=== PATIENT | female | born 1975 | race Caucasian/White ===

== ENCOUNTER 2017-05-05 09:13 | Inpatient (IN) ==
[~2017-05-05 09:13] MED LIST: Bacitracin 50,000 UNIT, Polymyxin B Sulfate 500,000 UNIT, Sodium Chloride IRRigation 1,... IR ONE
[2017-05-05] MEDS ORDERED: CeFAZolin Syr 2,000MG/20 ML 2,000 MG/20 ML SYRINGE IVPB ONE (09:42)
[2017-05-05] MEDS ORDERED: Ringers Solution, Lactated 1,000 ML IVC SCH ×2 (09:45→16:53)
--- NOTE | 2017-05-05 10:09 | Anesthesia Evaluation PreOp ---
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 Other Medical History: GERD Anesthesia History: Past Anesthesia (GB, APPY, SARAH, Spine and bladder stimulator ), Problems (PONV) : No (SARAH) Alcohol Use: none Drug use: none Medications and Allergies Ferrous Sulfate 325 mg PO BID 12/19/14 [History] Potassium Chloride 40 meq PO DAILY 12/19/14 [History] Cyclobenzaprine [Flexeril] 10 mg PO TID PRN 12/31/15 [History] Furosemide [Lasix] 20 mg PO DAILY 12/31/15 [History] Meclizine HCl [Verticalm] 25 mg PO BID PRN 12/31/15 [History] Gabapentin [Neurontin] 800 mg PO TID 07/13/16 [History] Nabumetone [Relafen] 500 mg PO BID 07/13/16 [History] 3 Allergy/AdvReac Type Severity Reaction Status Date / Time No Known Allergies Allergy Verified 05/05/17 10:15 - Meds/Allergy Pre-op Review Medications Reviewed: Yes Allergies Reviewed: Yes Beta Blockers on Current Med List: No Anesthesia Results - Labs Laboratory Tests 05/04/17 05/04/17 05/04/17 09:12 09:12 09:12 WBC 5.6 Hgb 14.3 Hct 43.8 Plt Count 259 INR 1.0 Sodium 139 Potassium 4.2 Chloride 106 Carbon Dioxide 28 BUN 10 Creatinine 1.00 Stress 01/25 EF-72% No Ischemia - Imaging EKG: report reviewed (SR) Anesthesia Exam O2 Sat Height 1.65 m Height 1.65 m Height 1.65 m Weight 98.43 kg Weight 98.43 kg Weight 98.43 kg O2 Sat by Pulse Oximetry 97 O2 Sat by Pulse Oximetry 97 Vital Signs Temp Pulse Resp BP Pulse Ox 98.6 F 65 18 124/71 97 05/05/17 09:40 05/05/17 09:40 05/05/17 09:40 05/05/17 09:40 05/05/17 09:40 NPO (# of Hours): > 8 hrs Pain Scale: 0 Pain Scale Used: Numeric (1 - 10) - HEENT Pupil (Motor): Pupils equal, EOMI Mallampati: II Teeth: Normal Oral Opening: Greater than 3 - 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
[2017-05-05] MEDS ORDERED: Scopolamine Patch 1.5 MG PATCH.TD72 TD ONE (10:21)
[2017-05-05] MEDS ORDERED: *HR* FentaNYL (PF) 100 MCG/2 ML VIAL ONE (11:29)
[2017-05-05] MEDS ORDERED: Lidocaine -MPF 2% 2 ML VIAL ONE (11:30)
--- NOTE | 2017-05-05 12:09 | History & Physical Report ---
Date of Encounter: 05/05/17 Time of Encounter: 12:08 24 Hour HP Update - Instructions Instructions: If the History and Physical is less than 30 days old and was completed prior to A.M. admission and or procedure and has NOT been updated on calendar day of procedure please complete this update prior to performing procedure. - Update Patient reports changes in Medical Condition: No Changes in examination, assessment, or condition: No Changes in Medication: No Preop tests/diagnostics Reviewed: Yes Pre-Op MRSA Screen: Negative Surgery Remains Indicated: Yes Consent for Planned Operative Procedure(s) Verified: Yes - Pre-Operative Checklist Preoperative Checklist Indicated: No Prophylactic Antibiotic Ordered: Yes Home Medications Include Beta Geronimo: No Beta Geronimo Taken Today (Day of Surgery): No Beta Geronimo Taken Yesterday (Day Prior to Surgery): No Is VTE Prophylaxis Indicated?: Yes
[2017-05-05] MEDS ORDERED: *HR* Remifentanil 2 MG VIAL IVP ONE (12:28)
[2017-05-05] MEDS ORDERED: *HR* Midazolam HCl 2 MG/2 ML VIAL ONE (12:32)
[2017-05-05] MEDS ORDERED: Dexamethasone 4 MG/ML VIAL ONE ×2 (13:15→14:26)
[2017-05-05] MEDS ORDERED: Ondansetron 4 MG/2 ML VIAL ONE ×2 (13:15→14:26)
[2017-05-05] MEDS ORDERED: Neostigmine Methylsulfate 3 MG/3 ML SYRINGE ONE (13:38)
[2017-05-05] MEDS ORDERED: Ondansetron 4 MG/2 ML VIAL IVP ONE (14:04)
[2017-05-05] MEDS ORDERED: *HR* HYDROmorphone 2 MG/ML SYRINGE ONE (14:48)
--- NOTE | 2017-05-05 15:23 | Orthopedic Operative Note ---
Date of procedure: 05/05/17 Pre-op diagnosis: Spondylolisthesis, lumbar stenosis Post-op diagnosis: same Operation/Findings: Posterior lumbar interbody fusion L4-L5: The patient successfully underwent general endotracheal anesthesia. The patient was given antibiotics prior to the start of the procedure. Compression boots and stockings were used for deep vein thrombosis prophylaxis. A Nick catheter was placed. Leads for neuro monitoring were placed on the upper and lower extremities. This included the cranium. The neuro monitoring personnel confirmed there were satisfactory readings prior to the start of the procedure. The patient was turned prone on the Tung table. The back was prepped and draped in the usual sterile fashion. An incision was was marked and centered over the involved levels in the mid line. The incision was deepened through the lumbar fascia. Bovie cautery and Novoa elevators were used to reflect the paraspinal musculature at the lateral extent of the transverse processes of the involved L4 and L5 levels. Gege clamps were placed over the L4 and L5 spinous processes. An intraoperative lateral fluoroscopy graft was obtained. A conversation was held between the surgeon and radiologist and both confirmed we had the correct operative levels. We then placed pedicle screws in standard fashion with the aid of fluoroscopy and anatomic landmarks. Briefly a starter awl was used. A gearshift was subsequently used to enter the helicopter pilot hole via a transpedicular route into the vertebral body. The helicopter pilot hole was tapped with an undersized instrument, and subsequently two 6.5 x 40 mm pedicle screws were placed on the left at the indicated levels. We omitted the right-sided screws secondary to concerns of screw placement. The screws were tested with the aid of the neurologic monitoring staff via pedicle screw stimulation. All reading suggested there was no significant cortical wall breech. The screws were also evaluated fluoro- graphically and appeared to be in satisfactory position. We then turned our attention to the decompression portion of the procedure. We removed the supraspinous and interspinous ligaments and subsequently the insertion of the ligamentum flavum on the undersurface of the proximal L4 lamina was dislodged with a curette. We then removed the ligamentum flavum as well as undercut the L4-L5 facets at this level to decompress the lateral recesses. We also performed a L4 laminectomy. After the decompression, which was over and above that which was required to place the interbody graft, the foramen and traversing roots at this L4-L5 level were found to be free and patent. We also took part of the medial facet in order to aid in the decompression. We then protected the neural elements including the thecal sac and traversing nerve root on the right with a dural retractor. We made an annulotomy into the L4-L5 disc space and then removed disc material using Pituitary instruments. We trialed various size grafts after the endplates were prepared for graft insertion. An 8 x 26 enter body graft fit well within the L4 -L5 disc space. We obtained some bone from the left posterior superior iliac spine through us a separate incision and combined with this with the bone which we had saved from the laminectomy portion of the procedure. This autograft bone was first placed in the anterior portion of the L4-L5 disc space and additional bone was placed within the interbody graft spacer. We then placed the interbody graft spacer obliquely across the L4-L5 disc space towards the midline while protecting the neural elements with a root retractor. When the graft was found to be in satisfactory position the skein winding operator was removed. We then copiously irrigated the wound. We then decorticated the L4 and L5 transverse processes as well as the facet joints of the L4-L5 involved levels to aid in the posterolateral fusion. We placed autograft bone in the lateral gutters over these regions. We then placed rods within the screw heads of the involved levels and first locked the distal screws and then subsequently locked the proximal screws so as to improve and reduce the spondylolisthesis previously seen. We then closed the wound in layers with 1 Vicryl for the fascia, 2-0 Vicryl. Subcutaneous tissue, and Dermabond was used for skin closure. Sterile dressings were placed over the wound. The patient was turned supine on a hospital bed and extubated. All sponge instruments and needle counts were correct at the end of the procedure. The patient tolerated the procedure well without complications. Anesthesia: GETA Was there an health information assistant present: No Estimated blood loss (cc): 100 Specimen: none Condition: stable Disposition: PACU
[2017-05-05] MEDS: *HR* HYDROmorphone (PF) 1 MG/ML SYRINGE IVP PRN ×4 (15:38→15:53)
--- NOTE | 2017-05-05 16:19 | Anesthesia Evaluation Post Op ---
Date of Encounter: 05/05/17 Time of Encounter: 16:17 - Vital Signs Vital Signs: Vital Signs/O2 Sat/Glucose, Most Current Temp Pulse Resp BP Pulse Ox 05/05/17 16:09 98.5 F 69 14 129/74 96 05/05/17 15:59 98.5 F 70 15 128/71 97 05/05/17 15:49 56 14 129/71 97 05/05/17 15:39 57 15 129/82 97 05/05/17 15:29 97.9 F 61 16 125/71 99 - Lungs Lungs: Clear Ascult./Percussion - Airway Airway: Non-obstructed - Cardiovascular Regular Rate - Mental Status Mental Status: Alert & Oriented, Answers Appropriately - Pain Pain Scale: 0 Pain Scale used: Numeric (1 - 10) - Nausea Vomiting Nausea Vomiting: Not Present - Hydration Hydration: Ice chips, Has not voided - Discharge PostOp Status: Transfer Patient to floor Anes Supervising Prov Stmt: Pt seen/evaluated, VSS and pt has met criteria for discharge to floor. - MD Fina
[2017-05-05] MEDS ORDERED: CeFAZolin Premix DUPLEX 2,000 MG/50 ML BAG IVPB SCH (16:53)
[2017-05-05] MEDS ORDERED: Acetaminophen 325 MG TABLET PO PRN (16:53)
[2017-05-05] MEDS ORDERED: Naloxone 0.4 MG/ML INJ IVP PRN (16:53)
[2017-05-05] MEDS: Hyoscyamine SL 0.125 MG TAB.SUBL PO SCH (17:17)
[2017-05-05] MEDS: CeFAZolin Premix DUPLEX 2,000 MG/50 ML BAG IVPB SCH (17:48)
[2017-05-05] MEDS: *HR* OxyCODONE Immed Rel 5 MG TABLET PO PRN (19:30)
[2017-05-05] MEDS ORDERED: LACTOSE REDUCED FOOD PO SCH (21:00)
[2017-05-05] MEDS: *HR* Morphine 2 MG/ML SYRINGE IVP PRN (23:36)
[2017-05-06] MEDS: CeFAZolin Premix DUPLEX 2,000 MG/50 ML BAG IVPB SCH (05:04)
[2017-05-06] MEDS: *HR* OxyCODONE Immed Rel 5 MG TABLET PO PRN ×4 (05:11→21:29)
[2017-05-06] MEDS: Hyoscyamine SL 0.125 MG TAB.SUBL PO SCH ×2 (05:12→17:24)
[2017-05-06 06:27] LABS: BUN/Creatinine Ratio 9 (6-26); Blood Urea Nitrogen 8 mg/dL (6-20); Calcium 8.5 mg/dL (8.6-10.3); Carbon Dioxide 26 mEq/L (23-29); Chloride 107 mEq/L (98-107); Glucose 130 mg/dL (70-105); Osmolality,Calculated 286 (280-300); Potassium 4.1 mEq/L (3.5-5.1); Sodium 138 mEq/L (136-145); eGFR For African Americans > 60 (> 60); eGFR For Non-African Americans > 60 (> 60)
[2017-05-06 06:37] LABS: Basophils % 0.1 %; Hematocrit 38.8 % (35.3-44.9); Immature Granulocytes % 0.3 % (0-4); Lymphocytes # 0.9 K/mcL (0.6-4.6); Lymphocytes % 7.6 %; Mean Corpuscular HGB Conc 32.7 g/dL (31.6-35.5); Mean Corpuscular Hemoglobin 30.5 pg (28.0-33.3); Mean Corpuscular Volume 93.3 fL (83.0-100.0); Mean Platelet Volume 9.8 fL (9.4-12.4); Monocytes # 0.5 K/mcL (0.0-1.3); Platelet Count 234 K/mcL (140-400); Red Blood Count 4.16 M/mcL (3.82-4.97); Red Cell Distribution Width 12.5 % (11.5-14.5)
[2017-05-06 07:26] LABS: Hemoglobin 12.7 g/dL (11.5-15.4); Neutrophils # 9.9 K/mcL (1.6-8.9)
[2017-05-06] MEDS: Furosemide 20 MG TABLET PO SCH (09:29)
[2017-05-06] MEDS: (Mirabegron [Myrbetriq] 50 MG) PO SCH (09:30)
[2017-05-06] MEDS: Famotidine 20 MG TABLET PO SCH (09:45)
[2017-05-07] MEDS: *HR* OxyCODONE Immed Rel 5 MG TABLET PO PRN ×3 (02:26→14:13)
[2017-05-07] MEDS: Hyoscyamine SL 0.125 MG TAB.SUBL PO SCH ×2 (05:14→16:24)
[2017-05-07] MEDS: (Mirabegron [Myrbetriq] 50 MG) PO SCH (08:58)
[2017-05-07] MEDS: Furosemide 20 MG TABLET PO SCH (09:01)
[2017-05-07] MEDS: Famotidine 20 MG TABLET PO SCH (09:11)
[2017-05-07 10:03] LABS: Hematocrit 36.4 % (35.3-44.9); Hemoglobin 11.9 g/dL (11.5-15.4)
[2017-05-07] MEDS: Ondansetron 4 MG/2 ML VIAL IVP PRN (14:13)
--- NOTE | 2017-05-07 18:35 | Spine Progress Note ---
Date of Encounter: 05/07/17 Time of Encounter: 18:34 Subjective Principal diagnosis: Status post lumbar fusion Interval history: The patient is without complaints. Afebrile vital signs are stable. Incision is clean dry and intact. Neurovascularly intact with regard to bilateral lower extremities. Fires all upper and lower extremity motor groups. Negative straight leg raise. Assessment :stable. Plan mobilize ,continue analgesics, discharge planning. Objective Vital signs: Vital Signs Temp Pulse Resp BP Pulse Ox 05/07/17 16:21 99.3 F 75 12 104/70 96 05/07/17 11:12 98.4 F 82 12 112/76 95 05/07/17 06:34 98.6 F 80 12 108/70 94 05/07/17 01:00 99.2 F 82 16 95/64 94 05/06/17 19:28 98.8 F 82 17 97/67 95 Intake and Output 05/07/17 05/07/17 05/07/17 07:59 15:59 23:59 Intake Total 600 / 600 Balance 600 / 600 Intake: Oral 600 / 600 Other: Meal Lunch Percent of Meal Consumed 0% # Voids 2 - Labs CBC & BMP: 05/07/17 09:41 05/06/17 04:54 Labs: Abnormal lab results WBC 11.2 K/mcL (4.3-11.1) H D 05/06/17 04:54 Neutrophils # 9.9 K/mcL (1.6-8.9) H 05/06/17 04:54 Glucose 130 mg/dL (70-105) H 05/06/17 04:54 Calcium 8.5 mg/dL (8.6-10.3) L 05/06/17 04:54 Consult Discharge Plan - Plan Referrals: Noel Jensen MD [Primary Care Provider] -
[2017-05-08] MEDS: *HR* Morphine 2 MG/ML SYRINGE IVP PRN ×2 (01:25→19:54)
[2017-05-08] MEDS: (Mirabegron [Myrbetriq] 50 MG) PO SCH (07:57)
[2017-05-08] MEDS: Furosemide 20 MG TABLET PO SCH (08:03)
[2017-05-08] MEDS: Famotidine 20 MG TABLET PO SCH (08:03)
[2017-05-08] MEDS: Hyoscyamine SL 0.125 MG TAB.SUBL PO SCH ×2 (08:05→19:54)
[2017-05-08] MEDS: *HR* OxyCODONE Immed Rel 5 MG TABLET PO PRN ×3 (08:10→23:42)
--- NOTE | 2017-05-08 13:24 | Orthopedics Progress Note ---
Date of Encounter: 05/08/17 Time of Encounter: 13:23 Subjective Principal diagnosis: Status post lumbar fusion Interval history: The patient is without complaints. Afebrile vital signs are stable. Incision is clean dry and intact. Neurovascularly intact with regard to bilateral lower extremities. Fires all upper and lower extremity motor groups. Negative straight leg raise. Assessment :stable. Plan mobilize ,continue analgesics, discharge planning. Objective Vital signs: Vital Signs Temp Pulse Resp BP Pulse Ox 05/08/17 11:54 99.0 F 79 14 102/69 94 05/08/17 06:56 98.7 F 71 14 106/72 93 05/08/17 00:35 99.4 F 78 14 100/65 92 05/07/17 21:32 99.1 F 78 16 104/71 95 05/07/17 16:21 99.3 F 75 12 104/70 96 Intake and Output 05/07/17 05/08/17 05/08/17 23:59 07:59 15:59 Other: # Voids 3 - Labs CBC & BMP: 05/07/17 09:41 05/06/17 04:54 Labs: Abnormal lab results WBC 11.2 K/mcL (4.3-11.1) H D 05/06/17 04:54 Neutrophils # 9.9 K/mcL (1.6-8.9) H 05/06/17 04:54 Glucose 130 mg/dL (70-105) H 05/06/17 04:54 Calcium 8.5 mg/dL (8.6-10.3) L 05/06/17 04:54 - VTE Documentation of Mechanical Device: Graduated compression elastic hosiery Consult Discharge Plan - Plan Referrals: Noel Jensen MD [Primary Care Provider] -
[2017-05-08] MEDS: Ondansetron 4 MG/2 ML VIAL IVP PRN (17:23)
[2017-05-09] MEDS: *HR* OxyCODONE Immed Rel 5 MG TABLET PO PRN ×4 (06:27→19:19)
[2017-05-09] MEDS: Furosemide 20 MG TABLET PO SCH (07:29)
[2017-05-09] MEDS: (Mirabegron [Myrbetriq] 50 MG) PO SCH (07:30)
[2017-05-09] MEDS: Hyoscyamine SL 0.125 MG TAB.SUBL PO SCH ×2 (07:35→21:20)
[2017-05-09] MEDS: Famotidine 20 MG TABLET PO SCH (07:35)
--- NOTE | 2017-05-09 12:04 | Orthopedics Progress Note ---
Date of Encounter: 05/09/17 Time of Encounter: 12:03 Subjective Principal diagnosis: Status post lumbar fusion Interval history: The patient is without complaints. Afebrile vital signs are stable. Incision is clean dry and intact. Neurovascularly intact with regard to bilateral lower extremities. Fires all upper and lower extremity motor groups. Negative straight leg raise. Assessment :stable. Plan mobilize ,continue analgesics, discharge planning. Objective Vital signs: Vital Signs Temp Pulse Resp BP Pulse Ox 05/09/17 06:33 98 F 74 16 99/64 95 05/09/17 05:00 97.9 F 70 16 98/65 96 05/08/17 23:45 98.9 F 79 16 105/72 96 05/08/17 18:48 99.1 F 78 16 109/74 93 05/08/17 15:02 98.2 F 77 14 93/64 95 Intake and Output 05/08/17 05/09/17 05/09/17 23:59 07:59 15:59 Intake Total 760 / 760 500 / 500 Balance 760 / 760 500 / 500 Intake: Oral 760 / 760 500 / 500 Other: # Voids 1 1 - Labs CBC & BMP: 05/07/17 09:41 05/06/17 04:54 Labs: Abnormal lab results WBC 11.2 K/mcL (4.3-11.1) H D 05/06/17 04:54 Neutrophils # 9.9 K/mcL (1.6-8.9) H 05/06/17 04:54 Glucose 130 mg/dL (70-105) H 05/06/17 04:54 Calcium 8.5 mg/dL (8.6-10.3) L 05/06/17 04:54 - VTE Documentation of Mechanical Device: Intermittent pneumatic compression device Consult Discharge Plan - Plan Referrals: Noel Jensen MD [Primary Care Provider] -
[2017-05-09] MEDS: *HR* Morphine 2 MG/ML SYRINGE IVP PRN ×2 (16:35→21:31)
[2017-05-10] MEDS: *HR* OxyCODONE Immed Rel 5 MG TABLET PO PRN ×2 (00:39→05:45)
[2017-05-10] MEDS: Hyoscyamine SL 0.125 MG TAB.SUBL PO SCH (08:14)
[2017-05-10] MEDS: Furosemide 20 MG TABLET PO SCH (08:15)
[2017-05-10] MEDS: Famotidine 20 MG TABLET PO SCH (08:15)
[2017-05-10] MEDS ORDERED: *HR* OxyCODONE Immed Rel 5 MG TABLET PO PRN ×2 (10:00→10:28)
--- NOTE | 2017-05-10 11:03 | Discharge Summary ---
Date of Encounter: 05/10/17 Time of Encounter: 11:01 - Discharge Diagnosis (1) Spondylolisthesis Priority: Primary Status: Chronic Qualifiers: Spinal region: lumbar Qualified Code(s): M43.16 - Spondylolisthesis, lumbar region (2) Lumbar stenosis without neurogenic claudication Priority: Secondary Status: Chronic - Discharge Medications Prescriptions: OxyCODONE Immed Rel [Roxicodone 5 MG] 5 mg PO Q4HR PRN #30 tablet PRN Reason: moderate pain 4-6 Home Medications: Ferrous Sulfate 325 mg PO BID 12/19/14 [History] Potassium Chloride 60 meq PO DAILY 12/19/14 [History] Cyclobenzaprine [Flexeril] 10 mg PO TID PRN 12/31/15 [History] Furosemide [Lasix] 20 mg PO DAILY 12/31/15 [History] Meclizine HCl [Verticalm] 25 mg PO BID PRN 12/31/15 [History] Gabapentin [Neurontin] 800 mg PO TID 07/13/16 [History] Nabumetone [Relafen] 500 mg PO BID 07/13/16 [History] Hyoscyamine Sulfate [Hyoscyamine Sulfate ER] 0.375 mg PO Q12H 05/05/17 [History] Lactose-Reduced Food [Ensure Original] 1 bottle PO BID 05/05/17 [History] Mirabegron [Myrbetriq] 50 mg PO DAILY 05/05/17 [History] Omeprazole [PriLOSEC] 40 mg PO BID 05/05/17 [History] Ranitidine HCl [Zantac] 150 mg PO DAILY 05/05/17 [History] OxyCODONE Immed Rel [Roxicodone 5 MG] 5 mg PO Q4HR PRN #30 tablet 05/10/17 [Rx] Allergies/Adverse Reactions: 3 Allergy/AdvReac Type Severity Reaction Status Date / Time No Known Allergies Allergy Verified 05/05/17 10:15 - Impressions ITS Impressions Lumbar Spine X-Ray 05/05/17 00:00 IMPRESSION: 1. Posterior fusion hardware at L4-L5 without convincing hardware complication on this single view. 2. Degenerative changes of the lumbar spine. 3. Thoracic spinal stimulator as well as a sacral stimulator are noted. D/ / Billy Wells MD / Billy Wells MD Interpreting Provider: Billy Wells MD Lumbar Spine X-Ray 05/08/17 08:26 IMPRESSION: Postsurgical changes from fusion of the L4-L5 level. No anterolisthesis is noted on the current study. Mild loss of disc space height appreciated. D/ / 05/08/2017 10:46:58 Nathaniel Araya MD / patt Interpreting Provider: Nathaniel Araya MD Date of admission: 05/05/17 16:34 Primary care physician: Noel Jensen MD Consults: 05/05/17 16:53 Consult to Occupational Therapy [CONS] Routine Comment: Evaluate, develop and implement POC Reason for Consult: Postoperative Consult to Physical Therapy [CONS] Routine Comment: Evaluate, develop and implement POC Reason for Consult: Postoperative Consult to Spine Navigator [CONS] [CONS] Routine - Patient Status Disposition: Home, Self-Care Condition: Good Functional capacity at discharge: independent ambulation Overall status at discharge: patient is progressing back to baseline - Discharge Instructions Follow Up With: Noel Jensen MD [Primary Care Provider] - - Diet and Activity Activity: as per physical therapy Diet: advance to your usual diet - Hospital Course Hospital course: Ms. Valencia is a 42 year old female The patient had an uneventful postoperative course. Progressed from intravenous analgesic needs to oral analgesic needs only. Remained neurovascularly intact and mobilized satisfactorily. All intraoperative and/or postoperative radiographic studies were satisfactory. Patient is discharged with plan for rehabilitation and follow-up in 2 weeks post discharge on analgesic medication and patient's home medications. - Time Spent with Patient Total time spent providing and/or coordinating discharge services: - VTE Documentation of Mechanical Device: Intermittent pneumatic compression device
[2017-05-10 11:29] VITALS: BP 96/64
== END 2017-05-10 14:34 | disposition home or self-care (01) | DRG 304 ==
LOC: SAMDAY 09:13 → 3NENU 16:34
PROVIDERS: ADMIT Orthopaedic Surgery Orthopaedic Surgery of the Spine; ATTEND Orthopaedic Surgery Orthopaedic Surgery of the Spine

== ENCOUNTER 2019-06-20 09:17 | Observation (INO) ==
[2019-06-20] MEDS ORDERED: Isovue-370 500 ML BOTTLE IVP ONE (09:41)
[2019-06-20] MEDS ORDERED: *HR* HYDROmorphone (PF) 1 MG/ML SYRINGE IVP ONE ×2 (09:43→14:19)
[2019-06-20] MEDS ORDERED: Ondansetron 4 MG/2 ML VIAL IVP ONE (09:43)
[2019-06-20] MEDS ORDERED: 0.9 % Sodium Chloride 1,000 ML IVC ONE (09:43)
[2019-06-20 10:18] LABS: Basophils % 0.1 %; Hematocrit 44.7 % (35.3-44.9); Immature Granulocytes % 0.5 % (0-4); Lymphocytes # 0.7 K/mcL (0.6-4.6); Lymphocytes % 4.3 %; Mean Corpuscular HGB Conc 33.6 g/dL (31.6-35.5); Mean Corpuscular Hemoglobin 31.1 pg (28.0-33.3); Mean Corpuscular Volume 92.5 fL (83.0-100.0); Mean Platelet Volume 9.5 fL (9.4-12.4); Monocytes # 0.8 K/mcL (0.0-1.3); Monocytes % 4.4 %; Neutrophils # 15.7 K/mcL (1.6-8.9); Platelet Count 279 K/mcL (140-400); Red Blood Count 4.83 M/mcL (3.82-4.97); Segmented Neutrophils % 90.7 %; White Blood Count 17.4 K/mcL (4.3-11.1)
[2019-06-20 10:28] LABS: INR 1.1; Prothrombin Time 12.9 Seconds (9.4-12.1)
[2019-06-20 10:31] LABS: Activated Partial Thrombo Time 29.3 Seconds (26.0-36.0)
[2019-06-20 10:38] LABS: Alanine Aminotransferase 16 Units/L (7-52); Albumin 3.9 g/dL (3.5-5.7); Albumin/Globulin Ratio 1.6 (1.1-2.2); Alkaline Phosphatase 71 Units/L (34-104); Aspartate Amino Transferase 16 Units/L (13-39); BUN/Creatinine Ratio 11 (6-26); Bilirubin,Total 0.8 mg/dL (0.3-1.0); Blood Urea Nitrogen 10 mg/dL (6-20); Calcium 9.1 mg/dL (8.6-10.3); Carbon Dioxide 26 mEq/L (23-29); Chloride 107 mEq/L (98-107); Globulin 2.5 g/dL (2.4-3.5); Glucose 139 mg/dL (70-105); Osmolality,Calculated 287 (280-300); Potassium 3.7 mEq/L (3.5-5.1); Sodium 138 mEq/L (136-145); Total Protein 6.4 g/dL (6.4-8.9); eGFR For African Americans > 60 (> 60); eGFR For Non-African Americans > 60 (> 60)
[2019-06-20 10:51] LABS: Bilirubin,Urine Small (Negative); Blood,Urine Small (Negative); Clarity,Urine Cloudy (Clear); Color,Urine Dark Yellow (Yellow); Glucose,Urine (UA) Normal (Normal); Ketones,Urine Trace mg/dL (Negative); Leukocyte Esterase,Urine Negative (Negative); Nitrite,Urine Negative (Negative); PH,Urine 5.5 pH Units (5.0-8.0); Protein,Urine 100 mg/dL (Neg-Trace); Specific Gravity,Urine > 1.030 (1.010-1.025); Urobilinogen,Urine Normal (Normal)
[2019-06-20 10:52] LABS: Bacteria,Urine Moderate per hpf (None-Few); Hyaline Casts,Urine None Seen per lpf (None-Few); Squamous Epithelial Cell,Urine Many per lpf (None-Few)
[2019-06-20 12:36] LABS: Amylase 222 Units/L (29-103); Lipase 516 Units/L (11-82)
[2019-06-20] MEDS ORDERED: cefOXitin 1,000 MG in D5% in Water (Mini-Bag+) 100 ML IVPB ONE (14:06)
[2019-06-20] MEDS ORDERED: Piperacillin/Tazobactam 3.375 GM in 0.9 % Sodium Chloride Mini Bag 100 ML IVPB ONE (14:07)
[2019-06-20 15:38] VITALS: BP 133/88
[2019-06-20] MEDS ORDERED: Naloxone 0.4 MG/ML INJ IVP PRN (15:53)
[2019-06-20] MEDS ORDERED: Ondansetron 4 MG/2 ML VIAL IVP PRN (15:53)
[2019-06-20] MEDS ORDERED: *HR* LORazepam 2 MG/ML VIAL IVP PRN (15:55)
[2019-06-20] MEDS ORDERED: *HR* HYDROmorphone (PF) 1 MG/ML SYRINGE IVP PRN (15:55)
[2019-06-20] MEDS ORDERED: Ringers Solution, Lactated 1,000 ML IVC SCH (16:00)
[2019-06-20] MEDS ORDERED: Piperacillin/Tazobactam 3.375 GM in 0.9 % Sodium Chloride Mini Bag 100 ML IVPB SCH (22:00)
== END 2019-06-20 19:25 | disposition short-term general hospital (02) ==
LOC: EMEROOARM 09:17 → 3ANU 09:17
PROVIDERS: ADMIT Internal Medicine; ATTEND Internal Medicine

== ENCOUNTER 2019-08-25 08:37 | Inpatient (IN) ==
[2019-08-25] MEDS ORDERED: 0.9 % Sodium Chloride 1,000 ML IVC ONE (09:36)
[2019-08-25] MEDS ORDERED: *HR* HYDROmorphone (PF) 1 MG/ML SYRINGE IVP ONE (09:36)
[2019-08-25] MEDS ORDERED: *HR* Promethazine 25 MG/ML VIAL IVP STA (09:37)
[2019-08-25 09:45] LABS: Basophils # 0.1 K/mcL (0.0-0.2); Eosinophils # 0.9 K/mcL (0.0-0.6); Eosinophils % 13.8 %; Hematocrit 46.6 % (35.3-44.9); Hemoglobin 14.6 g/dL (11.5-15.4); Immature Granulocytes % 0.2 % (0-4); Lymphocytes # 2.4 K/mcL (0.6-4.6); Lymphocytes % 37.6 %; Mean Corpuscular HGB Conc 31.3 g/dL (31.6-35.5); Mean Corpuscular Hemoglobin 30.3 pg (28.0-33.3); Mean Corpuscular Volume 96.7 fL (83.0-100.0); Mean Platelet Volume 8.6 fL (9.4-12.4); Monocytes # 0.4 K/mcL (0.0-1.3); Neutrophils # 2.6 K/mcL (1.6-8.9); Platelet Count 363 K/mcL (140-400); Red Blood Count 4.82 M/mcL (3.82-4.97); Red Cell Distribution Width 13.5 % (11.5-14.5); Segmented Neutrophils % 40.4 %; White Blood Count 6.4 K/mcL (4.3-11.1)
[2019-08-25 10:13] LABS: Alanine Aminotransferase 59 Units/L (7-52); Albumin 4.3 g/dL (3.5-5.7); Albumin/Globulin Ratio 1.4 (1.1-2.2); Alkaline Phosphatase 120 Units/L (34-104); Aspartate Amino Transferase 51 Units/L (13-39); BUN/Creatinine Ratio 16 (6-26); Bilirubin,Direct 0.1 mg/dL (0.0-0.2); Bilirubin,Indirect 0.4 mg/dL (0.0-1.0); Bilirubin,Total 0.5 mg/dL (0.3-1.0); Blood Urea Nitrogen 14 mg/dL (6-20); Calcium 9.5 mg/dL (8.6-10.3); Carbon Dioxide 28 mEq/L (23-29); Chloride 105 mEq/L (98-107); Glucose 87 mg/dL (70-105); Lipase 10 Units/L (11-82); Osmolality,Calculated 286 (280-300); Potassium 4.4 mEq/L (3.5-5.1); Sodium 138 mEq/L (136-145); Total Protein 7.3 g/dL (6.4-8.9); eGFR For African Americans > 60 (> 60); eGFR For Non-African Americans > 60 (> 60)
[2019-08-25 10:38] LABS: Bilirubin,Urine Negative (Negative); Blood,Urine Negative (Negative); Clarity,Urine Clear (Clear); Color,Urine Yellow (Yellow); Glucose,Urine (UA) Normal (Normal); Ketones,Urine Negative (Negative); Leukocyte Esterase,Urine Moderate (Negative); Nitrite,Urine Negative (Negative); PH,Urine 6.5 pH Units (5.0-8.0); Protein,Urine Negative (Neg-Trace); Specific Gravity,Urine 1.015 (1.010-1.025); Urobilinogen,Urine Normal (Normal)
[2019-08-25 10:40] LABS: Bacteria,Urine None Seen per hpf (None-Few); Hyaline Casts,Urine None Seen per lpf (None-Few); RBC,Urine 0-3 per hpf (0-3); Squamous Epithelial Cell,Urine Many per lpf (None-Few); WBC,Urine 15-30 per hpf (0-3)
[2019-08-25] MEDS ORDERED: Naloxone 0.4 MG/ML INJ IVP PRN (11:38)
[2019-08-25] MEDS: *HR* HYDROmorphone (PF) 1 MG/ML SYRINGE IVP PRN ×3 (13:05→20:47)
[2019-08-25] MEDS: Ringers Solution, Lactated 1,000 ML IVC SCH ×2 (13:06→20:40)
[2019-08-25] MEDS: Ondansetron 4 MG/2 ML VIAL IVP PRN ×3 (13:24→21:40)
[2019-08-25] MEDS: *HR* Heparin 5,000 UNIT/ML VIAL SQ SCH (17:24)
[2019-08-25] MEDS ORDERED: Morphine Sulfate ER (12 HR) 30 MG TABLET.ER PO SCH (18:00)
[2019-08-25] MEDS ORDERED: polyethylene glycoL 3350 17 GM POWD.PACK PO PRN (18:30)
[2019-08-25] MEDS: Morphine Sulfate ER (12 HR) 30 MG TABLET.ER PO SCH (20:44)
[2019-08-26] MEDS: Morphine Sulfate ER (12 HR) 30 MG TABLET.ER PO SCH ×3 (02:50→18:15)
[2019-08-26] MEDS: *HR* Heparin 5,000 UNIT/ML VIAL SQ SCH ×2 (05:42→18:15)
[2019-08-26] MEDS: Ondansetron 4 MG/2 ML VIAL IVP PRN ×3 (05:46→18:15)
[2019-08-26] MEDS: *HR* HYDROmorphone (PF) 1 MG/ML SYRINGE IVP PRN ×2 (05:47→23:07)
[2019-08-26 06:18] LABS: Basophils # 0.1 K/mcL (0.0-0.2); Basophils % 1.4 %; Eosinophils # 0.7 K/mcL (0.0-0.6); Hematocrit 41.8 % (35.3-44.9); Immature Granulocytes % 0.2 % (0-4); Lymphocytes # 2.3 K/mcL (0.6-4.6); Lymphocytes % 47.4 %; Mean Corpuscular HGB Conc 31.1 g/dL (31.6-35.5); Mean Corpuscular Hemoglobin 30.2 pg (28.0-33.3); Mean Corpuscular Volume 97.2 fL (83.0-100.0); Mean Platelet Volume 8.6 fL (9.4-12.4); Monocytes # 0.3 K/mcL (0.0-1.3); Monocytes % 5.2 %; Neutrophils # 1.5 K/mcL (1.6-8.9); Platelet Count 279 K/mcL (140-400); Red Cell Distribution Width 13.7 % (11.5-14.5); Segmented Neutrophils % 31.8 %; White Blood Count 4.9 K/mcL (4.3-11.1)
[2019-08-26 06:38] LABS: Albumin 3.6 g/dL (3.5-5.7); Albumin/Globulin Ratio 1.5 (1.1-2.2); Bilirubin,Direct 0.1 mg/dL (0.0-0.2); Bilirubin,Indirect 0.6 mg/dL (0.0-1.0); Bilirubin,Total 0.7 mg/dL (0.3-1.0); Globulin 2.4 g/dL (2.4-3.5)
[2019-08-26 06:40] LABS: BUN/Creatinine Ratio 10 (6-26); Blood Urea Nitrogen 9 mg/dL (6-20); Calcium 8.6 mg/dL (8.6-10.3); Carbon Dioxide 28 mEq/L (23-29); Chloride 106 mEq/L (98-107); Glucose 83 mg/dL (70-105); Osmolality,Calculated 286 (280-300); Potassium 3.9 mEq/L (3.5-5.1); Sodium 139 mEq/L (136-145); eGFR For African Americans > 60 (> 60); eGFR For Non-African Americans > 60 (> 60)
[2019-08-26] MEDS ORDERED: *HR* Promethazine 25 MG/ML VIAL IVP PRN (13:39)
[2019-08-26] MEDS: Ringers Solution, Lactated 1,000 ML IVC SCH ×2 (13:58→14:16)
[2019-08-26] MEDS: Promethazine 25 MG in 0.9 % Sodium Chloride 50 ML IVPB PRN (14:15)
[2019-08-27] MEDS: Promethazine 25 MG in 0.9 % Sodium Chloride 50 ML IVPB PRN ×2 (00:15→16:21)
[2019-08-27] MEDS: Morphine Sulfate ER (12 HR) 30 MG TABLET.ER PO SCH ×3 (02:48→18:22)
[2019-08-27] MEDS: *HR* Heparin 5,000 UNIT/ML VIAL SQ SCH ×2 (04:30→18:22)
[2019-08-27] MEDS: Ringers Solution, Lactated 1,000 ML IVC SCH ×2 (04:30→18:22)
[2019-08-27 05:14] LABS: Basophils # 0.1 K/mcL (0.0-0.2); Eosinophils # 0.5 K/mcL (0.0-0.6); Eosinophils % 8.4 %; Hematocrit 39.3 % (35.3-44.9); Immature Granulocytes % 0.2 % (0-4); Lymphocytes % 34.3 %; Mean Corpuscular HGB Conc 33.1 g/dL (31.6-35.5); Mean Corpuscular Volume 93.8 fL (83.0-100.0); Monocytes # 0.3 K/mcL (0.0-1.3); Monocytes % 5.3 %; Platelet Count 265 K/mcL (140-400); Red Blood Count 4.19 M/mcL (3.82-4.97); Red Cell Distribution Width 13.2 % (11.5-14.5); Segmented Neutrophils % 50.8 %; White Blood Count 5.9 K/mcL (4.3-11.1)
[2019-08-27 05:29] LABS: BUN/Creatinine Ratio 11 (6-26); Blood Urea Nitrogen 8 mg/dL (6-20); Calcium 8.6 mg/dL (8.6-10.3); Carbon Dioxide 26 mEq/L (23-29); Chloride 104 mEq/L (98-107); Glucose 73 mg/dL (70-105); Osmolality,Calculated 283 (280-300); Potassium 3.6 mEq/L (3.5-5.1); Sodium 138 mEq/L (136-145); eGFR For African Americans > 60 (> 60); eGFR For Non-African Americans > 60 (> 60)
[2019-08-27] MEDS: Ondansetron 4 MG/2 ML VIAL IVP PRN (10:24)
[2019-08-27] MEDS: Ketorolac 30 MG/ML VIAL IVP PRN (15:29)
[2019-08-28] MEDS: Morphine Sulfate ER (12 HR) 30 MG TABLET.ER PO SCH ×3 (02:55→18:33)
[2019-08-28] MEDS: *HR* Heparin 5,000 UNIT/ML VIAL SQ SCH ×2 (04:57→18:33)
[2019-08-28] MEDS: Ketorolac 30 MG/ML VIAL IVP PRN (04:57)
[2019-08-28] MEDS: Ringers Solution, Lactated 1,000 ML IVC SCH (04:58)
[2019-08-28] MEDS ORDERED: *HR* Propofol 200 MG/20 ML VIAL IVP ONE ×2 (09:34→09:45)
[2019-08-28] MEDS ORDERED: Lidocaine -MPF 2% 2 ML VIAL ONE (09:35)
[2019-08-28] MEDS ORDERED: Ondansetron 4 MG/2 ML VIAL ONE (09:40)
[2019-08-28] MEDS ORDERED: Metoclopramide 10 MG/2 ML VIAL IVP ONE (13:01)
[2019-08-28] MEDS: Promethazine 25 MG in 0.9 % Sodium Chloride 50 ML IVPB PRN ×2 (13:53→20:49)
[2019-08-28] MEDS: *HR* HYDROmorphone (PF) 1 MG/ML SYRINGE IVP PRN (20:17)
[2019-08-29] MEDS: Promethazine 25 MG in 0.9 % Sodium Chloride 50 ML IVPB PRN ×3 (02:31→22:38)
[2019-08-29] MEDS: Ringers Solution, Lactated 1,000 ML IVC SCH ×2 (02:31→15:01)
[2019-08-29] MEDS: Morphine Sulfate ER (12 HR) 30 MG TABLET.ER PO SCH ×3 (02:31→18:17)
[2019-08-29] MEDS: *HR* Heparin 5,000 UNIT/ML VIAL SQ SCH ×2 (05:59→18:17)
[2019-08-29] MEDS: *HR* HYDROmorphone (PF) 1 MG/ML SYRINGE IVP PRN (06:10)
[2019-08-29 07:42] LABS: Alanine Aminotransferase 50 Units/L (7-52); Albumin 3.6 g/dL (3.5-5.7); Albumin/Globulin Ratio 1.4 (1.1-2.2); Alkaline Phosphatase 91 Units/L (34-104); Aspartate Amino Transferase 49 Units/L (13-39); BUN/Creatinine Ratio 9 (6-26); Bilirubin,Total 0.6 mg/dL (0.3-1.0); Blood Urea Nitrogen 7 mg/dL (6-20); Calcium 8.5 mg/dL (8.6-10.3); Carbon Dioxide 25 mEq/L (23-29); Chloride 102 mEq/L (98-107); Globulin 2.5 g/dL (2.4-3.5); Glucose 75 mg/dL (70-105); Osmolality,Calculated 279 (280-300); Potassium 3.7 mEq/L (3.5-5.1); Sodium 136 mEq/L (136-145); Total Protein 6.1 g/dL (6.4-8.9); eGFR For African Americans > 60 (> 60); eGFR For Non-African Americans > 60 (> 60)
[2019-08-29] MEDS ORDERED: *HR* HYDROmorphone (PF) 1 MG/ML SYRINGE IVP PRN (08:23)
[2019-08-29] MEDS ORDERED: Metoclopramide 10 MG/2 ML VIAL IVP ONE (09:29)
[2019-08-29] MEDS ORDERED: Metoclopramide 10 MG/2 ML VIAL IVP PRN (14:13)
[2019-08-29] MEDS: Ketorolac 30 MG/ML VIAL IVP PRN (14:15)
[2019-08-30] MEDS: Ringers Solution, Lactated 1,000 ML IVC SCH (02:24)
[2019-08-30] MEDS: Morphine Sulfate ER (12 HR) 30 MG TABLET.ER PO SCH ×2 (02:24→10:28)
[2019-08-30] MEDS: *HR* Heparin 5,000 UNIT/ML VIAL SQ SCH (05:28)
[2019-08-30 10:48] VITALS: BP 109/68
== END 2019-08-30 15:19 | disposition home or self-care (01) | DRG 254 ==
LOC: 3BNU 08:37 → EMEROOARM 08:37 → SUATTDRO 11:38 → 3BNU 12:36
PROVIDERS: ADMIT Internal Medicine; ATTEND Internal Medicine
PROC: ENDOEBX (2019-08-28 12:20)

== ENCOUNTER 2020-08-12 08:24 | Observation (INO) ==
[2020-08-12 10:11] LABS: Basophils # 0.1 K/mcL (0.0-0.2); Basophils % 1.1 %; Eosinophils # 0.2 K/mcL (0.0-0.6); Eosinophils % 2.3 %; Hematocrit 49.2 % (35.3-44.9); Hemoglobin 16.4 g/dL (11.5-15.4); Immature Granulocytes % 0.2 % (0-4); Lymphocytes # 1.6 K/mcL (0.6-4.6); Lymphocytes % 24.7 %; Mean Corpuscular HGB Conc 33.3 g/dL (31.6-35.5); Mean Corpuscular Hemoglobin 30.7 pg (28.0-33.3); Mean Platelet Volume 9.1 fL (9.4-12.4); Monocytes # 0.4 K/mcL (0.0-1.3); Monocytes % 6.3 %; Neutrophils # 4.3 K/mcL (1.6-8.9); Platelet Count 292 K/mcL (140-400); Red Blood Count 5.35 M/mcL (3.82-4.97); Segmented Neutrophils % 65.4 %; White Blood Count 6.6 K/mcL (4.3-11.1)
[2020-08-12] MEDS ORDERED: Ondansetron 4 MG/2 ML VIAL IVP ONE ×2 (10:17→12:57)
[2020-08-12] MEDS ORDERED: *HR* FentaNYL (PF) 100 MCG/2 ML VIAL IVP ONE (10:17)
[2020-08-12] MEDS ORDERED: 0.9 % Sodium Chloride 1,000 ML IVC ONE (10:17)
[2020-08-12 10:52] LABS: Alanine Aminotransferase 895 Units/L (7-52); Albumin 4.5 g/dL (3.5-5.7); Albumin/Globulin Ratio 1.6 (1.1-2.2); Alkaline Phosphatase 271 Units/L (34-104); Amylase 16 Units/L (29-103); Aspartate Amino Transferase 912 Units/L (13-39); BUN/Creatinine Ratio 10 (6-26); Bilirubin,Direct 3.1 mg/dL (0.0-0.2); Bilirubin,Indirect 2.2 mg/dL (0.0-1.0); Bilirubin,Total 5.3 mg/dL (0.3-1.0); Blood Urea Nitrogen 11 mg/dL (6-20); Calcium 9.4 mg/dL (8.6-10.3); Carbon Dioxide 26 mEq/L (23-29); Chloride 104 mEq/L (98-107); Globulin 2.9 g/dL (2.4-3.5); Glucose 111 mg/dL (70-105); Lipase 11 Units/L (11-82); Osmolality,Calculated 286 (280-300); Potassium 3.8 mEq/L (3.5-5.1); Sodium 138 mEq/L (136-145); Total Protein 7.4 g/dL (6.4-8.9); eGFR For African Americans > 60 (> 60); eGFR For Non-African Americans 55 (> 60)
[2020-08-12 11:20] LABS: Bacteria,Urine Moderate per hpf (None-Few); Bilirubin,Urine Large (Negative); Blood,Urine Small (Negative); Clarity,Urine Turbid (Clear); Color,Urine Orange (Yellow); Glucose,Urine (UA) Normal (Normal); Ketones,Urine Negative (Negative); Leukocyte Esterase,Urine Moderate (Negative); Mucus,Urine Few per lpf (None-Few); Nitrite,Urine Negative (Negative); Protein,Urine 50 mg/dL (Neg-Trace); Renal Epithelial Cells,Urine Few per hpf (None-Few); Specific Gravity,Urine > 1.030 (1.010-1.025); Squamous Epithelial Cell,Urine Moderate per hpf (None-Few); Transitional Epi Cells,Urine Few per hpf (None-Few); Urobilinogen,Urine >=8.0 mg/dL (Normal)
[2020-08-12] MEDS ORDERED: Naloxone 0.4 MG/ML INJ IVP PRN (13:23)
[2020-08-12] MEDS ORDERED: Morphine Sulfate 2 MG/ML SYRINGE IVP ONE (15:16)
[2020-08-12] MEDS ORDERED: polyethylene glycoL 3350 17 GM POWD.PACK PO PRN (17:14)
[2020-08-12] MEDS ORDERED: hydrOXYzine pamoate 25 MG CAPSULE PO PRN (17:14)
[2020-08-12] MEDS ORDERED: tiZANidine 4 MG TABLET PO PRN (17:14)
[2020-08-12] MEDS ORDERED: 0.9 % Sodium Chloride 1,000 ML IVC SCH (17:15)
[2020-08-12] MEDS: Ringers Solution, Lactated 1,000 ML IVC SCH (18:13)
[2020-08-12] MEDS: Ondansetron 4 MG/2 ML VIAL IVP PRN (18:36)
[2020-08-12] MEDS ORDERED: *HR* Promethazine 25 MG/ML VIAL IM ONE (20:05)
[2020-08-12] MEDS: Mirtazapine 15 MG TABLET PO SCH (20:51)
[2020-08-12] MEDS: Sucralfate 1 GM TABLET PO SCH (20:52)
[2020-08-12] MEDS: Celecoxib 200 MG CAPSULE PO SCH (20:52)
[2020-08-13] MEDS: Ringers Solution, Lactated 1,000 ML IVC SCH ×3 (02:40→22:34)
[2020-08-13 05:03] LABS: Basophils # 0.1 K/mcL (0.0-0.2); Basophils % 0.6 %; Eosinophils # 0.1 K/mcL (0.0-0.6); Eosinophils % 0.5 %; Hematocrit 44.5 % (35.3-44.9); Immature Granulocytes % 0.3 % (0-4); Lymphocytes # 0.8 K/mcL (0.6-4.6); Mean Corpuscular HGB Conc 33.3 g/dL (31.6-35.5); Mean Corpuscular Hemoglobin 30.3 pg (28.0-33.3); Mean Corpuscular Volume 91.2 fL (83.0-100.0); Mean Platelet Volume 9.5 fL (9.4-12.4); Monocytes # 0.6 K/mcL (0.0-1.3); Monocytes % 5.8 %; Platelet Count 209 K/mcL (140-400); Red Blood Count 4.88 M/mcL (3.82-4.97); Red Cell Distribution Width 12.2 % (11.5-14.5); Segmented Neutrophils % 84.8 %; White Blood Count 9.5 K/mcL (4.3-11.1)
[2020-08-13 05:04] LABS: Hemoglobin 14.8 g/dL (11.5-15.4)
[2020-08-13 05:25] LABS: BUN/Creatinine Ratio 8 (6-26); Blood Urea Nitrogen 8 mg/dL (6-20); Calcium 8.8 mg/dL (8.6-10.3); Carbon Dioxide 23 mEq/L (23-29); Chloride 106 mEq/L (98-107); Glucose 77 mg/dL (70-105); Osmolality,Calculated 285 (280-300); Potassium 3.9 mEq/L (3.5-5.1); Sodium 139 mEq/L (136-145); eGFR For African Americans > 60 (> 60); eGFR For Non-African Americans > 60 (> 60)
[2020-08-13 05:38] LABS: Albumin 3.7 g/dL (3.5-5.7); Albumin/Globulin Ratio 1.5 (1.1-2.2); Bilirubin,Direct 5.3 mg/dL (0.0-0.2); Bilirubin,Total 8.3 mg/dL (0.3-1.0); Globulin 2.4 g/dL (2.4-3.5); Total Protein 6.1 g/dL (6.4-8.9)
[2020-08-13] MEDS: Pantoprazole 40 MG VIAL IVP SCH (08:43)
[2020-08-13] MEDS: Ondansetron 4 MG/2 ML VIAL IVP PRN (08:43)
[2020-08-13] MEDS: Prenatal Vit/FA 1 EACH TABLET PO SCH (08:44)
[2020-08-13] MEDS: Sucralfate 1 GM TABLET PO SCH ×2 (08:44→18:34)
[2020-08-13] MEDS: Celecoxib 200 MG CAPSULE PO SCH ×2 (08:44→19:47)
[2020-08-13] MEDS: Furosemide 20 MG TABLET PO SCH (08:44)
[2020-08-13] MEDS ORDERED: Lidocaine -MPF 2% 2 ML VIAL ONE (15:20)
[2020-08-13] MEDS ORDERED: *HR* Propofol 200 MG/20 ML VIAL IVP ONE (15:20)
[2020-08-13] MEDS ORDERED: *HR* Rocuronium Bromide 50 MG/5 ML VIAL ONE (15:20)
[2020-08-13] MEDS ORDERED: Ondansetron 4 MG/2 ML VIAL ONE (15:20)
[2020-08-13] MEDS ORDERED: *HR* Midazolam HCl 2 MG/2 ML VIAL ONE (15:20)
[2020-08-13] MEDS ORDERED: Lidocaine -MPF 4% 5 ML AMPUL ONE (15:21)
[2020-08-13] MEDS ORDERED: *HR* FentaNYL (PF) 100 MCG/2 ML VIAL ONE (15:43)
[2020-08-13] MEDS ORDERED: Ondansetron 4 MG/2 ML VIAL IVP PRN (17:10)
[2020-08-13] MEDS ORDERED: *HR* FentaNYL (PF) 100 MCG/2 ML VIAL IVP PRN (17:10)
[2020-08-13] MEDS ORDERED: Ringers Solution, Lactated 1,000 ML IVC SCH (17:15)
[2020-08-13] MEDS: *HR* OxyCODONE Immed Rel 5 MG TABLET PO PRN ×2 (17:19→17:30)
[2020-08-13] MEDS: *HR* Heparin 5,000 UNIT/ML VIAL SQ SCH (18:34)
[2020-08-13] MEDS: Mirtazapine 15 MG TABLET PO SCH (19:47)
[2020-08-14] MEDS: *HR* Heparin 5,000 UNIT/ML VIAL SQ SCH (05:51)
[2020-08-14] MEDS: Ringers Solution, Lactated 1,000 ML IVC SCH (06:15)
[2020-08-14 06:24] LABS: Alanine Aminotransferase 379 Units/L (7-52); Albumin 3.6 g/dL (3.5-5.7); Albumin/Globulin Ratio 1.3 (1.1-2.2); Alkaline Phosphatase 204 Units/L (34-104); Amylase 14 Units/L (29-103); Aspartate Amino Transferase 113 Units/L (13-39); BUN/Creatinine Ratio 13 (6-26); Bilirubin,Total 3.4 mg/dL (0.3-1.0); Blood Urea Nitrogen 10 mg/dL (6-20); Carbon Dioxide 23 mEq/L (23-29); Chloride 105 mEq/L (98-107); Globulin 2.7 g/dL (2.4-3.5); Glucose 103 mg/dL (70-105); Lipase 16 Units/L (11-82); Osmolality,Calculated 285 (280-300); Potassium 3.9 mEq/L (3.5-5.1); Sodium 138 mEq/L (136-145); Total Protein 6.3 g/dL (6.4-8.9); eGFR For African Americans > 60 (> 60); eGFR For Non-African Americans > 60 (> 60)
[2020-08-14] MEDS: Sucralfate 1 GM TABLET PO SCH (08:43)
[2020-08-14] MEDS: Celecoxib 200 MG CAPSULE PO SCH (08:43)
[2020-08-14] MEDS: Prenatal Vit/FA 1 EACH TABLET PO SCH (08:43)
[2020-08-14] MEDS: Pantoprazole 40 MG VIAL IVP SCH (08:44)
[2020-08-14] MEDS: Furosemide 20 MG TABLET PO SCH (08:44)
[2020-08-14 11:04] VITALS: BP 118/64
== END 2020-08-14 13:59 | disposition home or self-care (01) ==
LOC: EMEROOARM 08:24 → 3ANU 08:24 → SUATTDRO 15:01 → 3ANU 16:21
PROVIDERS: ADMIT Internal Medicine; ATTEND General Practice

== ENCOUNTER 2020-11-01 13:34 | Inpatient (IN) ==
[2020-11-01] MEDS ORDERED: 0.9 % Sodium Chloride 1,000 ML IVC ONE (13:48)
[2020-11-01] MEDS ORDERED: Isovue-370 500 ML BOTTLE IVP ONE (13:48)
[2020-11-01] MEDS ORDERED: *HR* HYDROmorphone (PF) 1 MG/ML SYRINGE IVP ONE ×2 (13:48→15:39)
[2020-11-01] MEDS ORDERED: Ondansetron 4 MG/2 ML VIAL IVP ONE (13:48)
[2020-11-01 14:04] LABS: Basophils # 0.1 K/mcL (0.0-0.2); Basophils % 1.1 %; Eosinophils # 0.2 K/mcL (0.0-0.6); Eosinophils % 2.1 %; Hematocrit 47.2 % (35.3-44.9); Hemoglobin 15.7 g/dL (11.5-15.4); Immature Granulocytes % 0.6 % (0-4); Lymphocytes # 1.9 K/mcL (0.6-4.6); Lymphocytes % 23.8 %; Mean Corpuscular HGB Conc 33.3 g/dL (31.6-35.5); Mean Corpuscular Hemoglobin 31.5 pg (28.0-33.3); Mean Corpuscular Volume 94.8 fL (83.0-100.0); Monocytes # 0.4 K/mcL (0.0-1.3); Monocytes % 4.4 %; Neutrophils # 5.4 K/mcL (1.6-8.9); Platelet Count 300 K/mcL (140-400); Red Blood Count 4.98 M/mcL (3.82-4.97); Red Cell Distribution Width 11.8 % (11.5-14.5); White Blood Count 7.9 K/mcL (4.3-11.1)
[2020-11-01 14:23] LABS: Alanine Aminotransferase 19 Units/L (7-52); Albumin 4.6 g/dL (3.5-5.7); Albumin/Globulin Ratio 1.5 (1.1-2.2); Alkaline Phosphatase 92 Units/L (34-104); Aspartate Amino Transferase 16 Units/L (13-39); BUN/Creatinine Ratio 8 (6-26); Bilirubin,Direct 0.1 mg/dL (0.0-0.2); Bilirubin,Indirect 0.7 mg/dL (0.0-1.0); Bilirubin,Total 0.8 mg/dL (0.3-1.0); Blood Urea Nitrogen 8 mg/dL (6-20); Calcium 9.5 mg/dL (8.6-10.3); Carbon Dioxide 27 mEq/L (23-29); Chloride 107 mEq/L (98-107); Glucose 110 mg/dL (70-105); Lipase 34 Units/L (11-82); Osmolality,Calculated 291 (280-300); Potassium 3.7 mEq/L (3.5-5.1); Sodium 141 mEq/L (136-145); Total Protein 7.6 g/dL (6.4-8.9); eGFR For African Americans > 60 (> 60); eGFR For Non-African Americans > 60 (> 60)
[2020-11-01 15:55] LABS: Bacteria,Urine Few per hpf (None-Few); Bilirubin,Urine Negative (Negative); Blood,Urine Negative (Negative); Clarity,Urine Clear (Clear); Color,Urine Colorless (Yellow); Glucose,Urine (UA) Normal (Normal); Ketones,Urine Negative (Negative); Leukocyte Esterase,Urine Small (Negative); Mucus,Urine Few per lpf (None-Few); Nitrite,Urine Negative (Negative); Protein,Urine Negative (Neg-Trace); RBC,Urine 0-3 per hpf (0-3); Specific Gravity,Urine > 1.030 (1.010-1.025); Squamous Epithelial Cell,Urine Few per hpf (None-Few); Urobilinogen,Urine Normal (Normal)
[2020-11-01] MEDS ORDERED: Naloxone 0.4 MG/ML INJ IVP PRN (16:40)
[2020-11-01] MEDS ORDERED: Acetaminophen 325 MG TABLET PO PRN (16:40)
[2020-11-01] MEDS ORDERED: *HR* Promethazine 25 MG/ML VIAL IM PRN (16:40)
[2020-11-01] MEDS ORDERED: Melatonin 3 MG TABLET PO PRN (16:40)
[2020-11-01] MEDS ORDERED: tiZANidine 4 MG TABLET PO PRN (17:29)
[2020-11-01] MEDS ORDERED: polyethylene glycoL 3350 17 GM POWD.PACK PO PRN (17:29)
[2020-11-01] MEDS ORDERED: hydrOXYzine pamoate 25 MG CAPSULE PO PRN (17:29)
[2020-11-01] MEDS: *HR* Heparin 5,000 UNIT/ML VIAL SQ SCH (18:18)
[2020-11-01] MEDS: Ketorolac 30 MG/ML VIAL IVP PRN (18:21)
[2020-11-01] MEDS: Mirtazapine 15 MG TABLET PO SCH (22:45)
[2020-11-02 03:26] LABS: Alanine Aminotransferase 13 Units/L (7-52); Albumin 3.7 g/dL (3.5-5.7); Albumin/Globulin Ratio 1.7 (1.1-2.2); Alkaline Phosphatase 70 Units/L (34-104); Aspartate Amino Transferase 13 Units/L (13-39); BUN/Creatinine Ratio 8 (6-26); Bilirubin,Total 0.9 mg/dL (0.3-1.0); Blood Urea Nitrogen 7 mg/dL (6-20); Calcium 8.4 mg/dL (8.6-10.3); Carbon Dioxide 22 mEq/L (23-29); Chloride 112 mEq/L (98-107); Globulin 2.2 g/dL (2.4-3.5); Glucose 83 mg/dL (70-105); Osmolality,Calculated 289 (280-300); Potassium 3.4 mEq/L (3.5-5.1); Sodium 141 mEq/L (136-145); Total Protein 5.9 g/dL (6.4-8.9); eGFR For African Americans > 60 (> 60); eGFR For Non-African Americans > 60 (> 60)
[2020-11-02] MEDS: *HR* Heparin 5,000 UNIT/ML VIAL SQ SCH ×2 (05:23→17:32)
[2020-11-02] MEDS: Ondansetron 4 MG/2 ML VIAL IVP PRN ×2 (05:28→17:32)
[2020-11-02] MEDS: Sucralfate 1 GM TABLET PO SCH ×2 (08:09→15:59)
[2020-11-02] MEDS: Ketorolac 30 MG/ML VIAL IVP PRN ×2 (08:09→20:39)
[2020-11-02] MEDS ORDERED: Furosemide 20 MG TABLET PO SCH (09:00)
[2020-11-02] MEDS ORDERED: Potassium Chloride Elixir 20 MEQ/15 ML UDC PO ONE (16:11)
[2020-11-02] MEDS: cefTRIAXone 1,000 MG in 0.9 % Sodium Chloride Mini Bag 100 ML IVPB SCH (17:32)
[2020-11-02] MEDS: *HR* HYDROmorphone (PF) 1 MG/ML SYRINGE IVP PRN (17:33)
[2020-11-02] MEDS: Mirtazapine 15 MG TABLET PO SCH (20:35)
[2020-11-03 00:50] LABS: Basophils # 0.1 K/mcL (0.0-0.2); Basophils % 1.3 %; Eosinophils # 0.2 K/mcL (0.0-0.6); Eosinophils % 3.9 %; Hematocrit 42.3 % (35.3-44.9); Immature Granulocytes % 0.2 % (0-4); Lymphocytes # 2.4 K/mcL (0.6-4.6); Lymphocytes % 38.8 %; Mean Corpuscular HGB Conc 32.4 g/dL (31.6-35.5); Mean Corpuscular Hemoglobin 30.9 pg (28.0-33.3); Mean Corpuscular Volume 95.5 fL (83.0-100.0); Mean Platelet Volume 8.7 fL (9.4-12.4); Monocytes # 0.4 K/mcL (0.0-1.3); Monocytes % 5.7 %; Neutrophils # 3.1 K/mcL (1.6-8.9); Platelet Count 233 K/mcL (140-400); Red Blood Count 4.43 M/mcL (3.82-4.97); Red Cell Distribution Width 11.8 % (11.5-14.5); Segmented Neutrophils % 50.1 %; White Blood Count 6.1 K/mcL (4.3-11.1)
[2020-11-03 00:51] LABS: Hemoglobin 13.7 g/dL (11.5-15.4)
[2020-11-03 01:07] LABS: Alanine Aminotransferase 14 Units/L (7-52); Albumin 3.7 g/dL (3.5-5.7); Albumin/Globulin Ratio 1.7 (1.1-2.2); Alkaline Phosphatase 72 Units/L (34-104); Aspartate Amino Transferase 15 Units/L (13-39); BUN/Creatinine Ratio 9 (6-26); Bilirubin,Direct 0.1 mg/dL (0.0-0.2); Bilirubin,Indirect 0.7 mg/dL (0.0-1.0); Bilirubin,Total 0.8 mg/dL (0.3-1.0); Blood Urea Nitrogen 9 mg/dL (6-20); Calcium 8.3 mg/dL (8.6-10.3); Carbon Dioxide 22 mEq/L (23-29); Chloride 109 mEq/L (98-107); Globulin 2.2 g/dL (2.4-3.5); Glucose 78 mg/dL (70-105); Osmolality,Calculated 286 (280-300); Potassium 3.5 mEq/L (3.5-5.1); Sodium 139 mEq/L (136-145); Total Protein 5.9 g/dL (6.4-8.9); eGFR For African Americans > 60 (> 60); eGFR For Non-African Americans 59 (> 60)
[2020-11-03] MEDS: *HR* Heparin 5,000 UNIT/ML VIAL SQ SCH ×2 (05:05→17:21)
[2020-11-03] MEDS: Sucralfate 1 GM TABLET PO SCH ×2 (09:22→17:21)
[2020-11-03] MEDS: Ondansetron 4 MG/2 ML VIAL IVP PRN ×2 (09:22→17:22)
[2020-11-03] MEDS: Ketorolac 30 MG/ML VIAL IVP PRN ×2 (11:57→20:35)
[2020-11-03] MEDS: *HR* HYDROmorphone (PF) 1 MG/ML SYRINGE IVP PRN ×2 (14:22→20:50)
[2020-11-03] MEDS: cefTRIAXone 1,000 MG in 0.9 % Sodium Chloride Mini Bag 100 ML IVPB SCH (17:21)
[2020-11-03] MEDS: Mirtazapine 15 MG TABLET PO SCH (20:22)
[2020-11-04 01:31] LABS: Basophils # 0.1 K/mcL (0.0-0.2); Basophils % 1.4 %; Eosinophils # 0.3 K/mcL (0.0-0.6); Eosinophils % 4.6 %; Hematocrit 40.4 % (35.3-44.9); Immature Granulocytes % 0.2 % (0-4); Lymphocytes # 2.6 K/mcL (0.6-4.6); Lymphocytes % 41.4 %; Mean Corpuscular HGB Conc 34.7 g/dL (31.6-35.5); Mean Corpuscular Hemoglobin 32.2 pg (28.0-33.3); Mean Corpuscular Volume 92.9 fL (83.0-100.0); Mean Platelet Volume 8.9 fL (9.4-12.4); Monocytes # 0.4 K/mcL (0.0-1.3); Monocytes % 6.5 %; Neutrophils # 2.9 K/mcL (1.6-8.9); Platelet Count 254 K/mcL (140-400); Red Blood Count 4.35 M/mcL (3.82-4.97); Red Cell Distribution Width 11.6 % (11.5-14.5); Segmented Neutrophils % 45.9 %; White Blood Count 6.3 K/mcL (4.3-11.1)
[2020-11-04 01:55] LABS: Alanine Aminotransferase 13 Units/L (7-52); Albumin 3.6 g/dL (3.5-5.7); Albumin/Globulin Ratio 1.7 (1.1-2.2); Alkaline Phosphatase 68 Units/L (34-104); Aspartate Amino Transferase 13 Units/L (13-39); BUN/Creatinine Ratio 8 (6-26); Bilirubin,Direct 0.1 mg/dL (0.0-0.2); Bilirubin,Indirect 0.5 mg/dL (0.0-1.0); Bilirubin,Total 0.6 mg/dL (0.3-1.0); Blood Urea Nitrogen 9 mg/dL (6-20); Calcium 8.3 mg/dL (8.6-10.3); Carbon Dioxide 24 mEq/L (23-29); Chloride 107 mEq/L (98-107); Globulin 2.1 g/dL (2.4-3.5); Glucose 82 mg/dL (70-105); Osmolality,Calculated 288 (280-300); Potassium 3.4 mEq/L (3.5-5.1); Sodium 140 mEq/L (136-145); Total Protein 5.7 g/dL (6.4-8.9); eGFR For African Americans > 60 (> 60); eGFR For Non-African Americans 55 (> 60)
[2020-11-04] MEDS: *HR* Heparin 5,000 UNIT/ML VIAL SQ SCH ×2 (05:12→17:32)
[2020-11-04] MEDS: Sucralfate 1 GM TABLET PO SCH ×2 (07:33→17:32)
[2020-11-04] MEDS: Ketorolac 30 MG/ML VIAL IVP PRN (07:48)
[2020-11-04] MEDS: *HR* HYDROmorphone (PF) 1 MG/ML SYRINGE IVP PRN ×3 (07:49→21:30)
[2020-11-04] MEDS: Ondansetron 4 MG/2 ML VIAL IVP PRN (07:49)
[2020-11-04] MEDS: Ringers Solution, Lactated 1,000 ML IVC SCH (15:07)
[2020-11-04] MEDS: cefTRIAXone 1,000 MG in 0.9 % Sodium Chloride Mini Bag 100 ML IVPB SCH (17:32)
[2020-11-04] MEDS: Mirtazapine 15 MG TABLET PO SCH (22:01)
[2020-11-05] MEDS: *HR* HYDROmorphone (PF) 1 MG/ML SYRINGE IVP PRN ×3 (01:04→18:03)
[2020-11-05] MEDS: Ringers Solution, Lactated 1,000 ML IVC SCH (04:27)
[2020-11-05] MEDS: *HR* Heparin 5,000 UNIT/ML VIAL SQ SCH ×2 (04:28→16:56)
[2020-11-05 05:26] LABS: Basophils # 0.1 K/mcL (0.0-0.2); Basophils % 1.5 %; Eosinophils # 0.2 K/mcL (0.0-0.6); Eosinophils % 4.5 %; Hematocrit 42.3 % (35.3-44.9); Hemoglobin 13.9 g/dL (11.5-15.4); Immature Granulocytes % 0.2 % (0-4); Lymphocytes # 2.2 K/mcL (0.6-4.6); Lymphocytes % 41.5 %; Mean Corpuscular HGB Conc 32.9 g/dL (31.6-35.5); Mean Corpuscular Volume 94.2 fL (83.0-100.0); Mean Platelet Volume 8.9 fL (9.4-12.4); Monocytes # 0.4 K/mcL (0.0-1.3); Monocytes % 6.7 %; Neutrophils # 2.4 K/mcL (1.6-8.9); Platelet Count 261 K/mcL (140-400); Red Blood Count 4.49 M/mcL (3.82-4.97); Red Cell Distribution Width 11.8 % (11.5-14.5); Segmented Neutrophils % 45.6 %; White Blood Count 5.4 K/mcL (4.3-11.1)
[2020-11-05 05:42] LABS: Alanine Aminotransferase 15 Units/L (7-52); Albumin 3.6 g/dL (3.5-5.7); Albumin/Globulin Ratio 1.6 (1.1-2.2); Alkaline Phosphatase 64 Units/L (34-104); Aspartate Amino Transferase 15 Units/L (13-39); BUN/Creatinine Ratio 6 (6-26); Bilirubin,Direct 0.1 mg/dL (0.0-0.2); Bilirubin,Indirect 0.5 mg/dL (0.0-1.0); Bilirubin,Total 0.6 mg/dL (0.3-1.0); Blood Urea Nitrogen 6 mg/dL (6-20); Calcium 8.4 mg/dL (8.6-10.3); Carbon Dioxide 28 mEq/L (23-29); Chloride 109 mEq/L (98-107); Globulin 2.2 g/dL (2.4-3.5); Glucose 88 mg/dL (70-105); Osmolality,Calculated 291 (280-300); Potassium 3.6 mEq/L (3.5-5.1); Sodium 142 mEq/L (136-145); Total Protein 5.8 g/dL (6.4-8.9); eGFR For African Americans > 60 (> 60); eGFR For Non-African Americans 59 (> 60)
[2020-11-05] MEDS: Sucralfate 1 GM TABLET PO SCH ×2 (07:10→16:57)
[2020-11-05] MEDS: cefTRIAXone 1,000 MG in 0.9 % Sodium Chloride Mini Bag 100 ML IVPB SCH (16:56)
[2020-11-05] MEDS: Ondansetron 4 MG/2 ML VIAL IVP PRN (18:02)
[2020-11-05] MEDS: Mirtazapine 15 MG TABLET PO SCH (20:13)
[2020-11-06 04:44] LABS: Alanine Aminotransferase 15 Units/L (7-52); Albumin 3.8 g/dL (3.5-5.7); Albumin/Globulin Ratio 1.7 (1.1-2.2); Alkaline Phosphatase 64 Units/L (34-104); Aspartate Amino Transferase 14 Units/L (13-39); BUN/Creatinine Ratio 4 (6-26); Bilirubin,Direct 0.1 mg/dL (0.0-0.2); Bilirubin,Indirect 0.5 mg/dL (0.0-1.0); Bilirubin,Total 0.6 mg/dL (0.3-1.0); Blood Urea Nitrogen 4 mg/dL (6-20); Calcium 8.9 mg/dL (8.6-10.3); Carbon Dioxide 27 mEq/L (23-29); Chloride 108 mEq/L (98-107); Globulin 2.2 g/dL (2.4-3.5); Glucose 93 mg/dL (70-105); Osmolality,Calculated 291 (280-300); Potassium 3.4 mEq/L (3.5-5.1); Sodium 142 mEq/L (136-145); eGFR For African Americans > 60 (> 60); eGFR For Non-African Americans 58 (> 60)
[2020-11-06 04:55] LABS: Hematocrit 41.9 % (35.3-44.9); Hemoglobin 14.5 g/dL (11.5-15.4); Mean Corpuscular Hemoglobin 31.8 pg (28.0-33.3); Mean Corpuscular Volume 91.9 fL (83.0-100.0); Red Blood Count 4.56 M/mcL (3.82-4.97); White Blood Count 5.9 K/mcL (4.3-11.1)
[2020-11-06 04:56] LABS: Basophils # 0.1 K/mcL (0.0-0.2); Basophils % 1.4 %; Eosinophils # 0.3 K/mcL (0.0-0.6); Eosinophils % 4.6 %; Immature Granulocytes % 0.3 % (0-4); Lymphocytes # 2.1 K/mcL (0.6-4.6); Lymphocytes % 35.4 %; Mean Corpuscular HGB Conc 34.6 g/dL (31.6-35.5); Mean Platelet Volume 9.2 fL (9.4-12.4); Monocytes # 0.3 K/mcL (0.0-1.3); Monocytes % 5.4 %; Neutrophils # 3.1 K/mcL (1.6-8.9); Platelet Count 254 K/mcL (140-400); Red Cell Distribution Width 11.6 % (11.5-14.5); Segmented Neutrophils % 52.9 %
[2020-11-06] MEDS: *HR* Heparin 5,000 UNIT/ML VIAL SQ SCH ×2 (05:39→17:57)
[2020-11-06] MEDS: Sucralfate 1 GM TABLET PO SCH ×2 (07:20→17:57)
[2020-11-06] MEDS: *HR* HYDROmorphone (PF) 1 MG/ML SYRINGE IVP PRN ×2 (07:29→15:44)
[2020-11-06] MEDS: cefTRIAXone 1,000 MG in 0.9 % Sodium Chloride Mini Bag 100 ML IVPB SCH (17:56)
[2020-11-06] MEDS: Mirtazapine 15 MG TABLET PO SCH (20:29)
[2020-11-07] MEDS: Ondansetron 4 MG/2 ML VIAL IVP PRN ×2 (05:21→16:03)
[2020-11-07] MEDS: *HR* Heparin 5,000 UNIT/ML VIAL SQ SCH ×2 (05:23→18:26)
[2020-11-07] MEDS: *HR* HYDROmorphone (PF) 1 MG/ML SYRINGE IVP PRN ×4 (05:26→20:32)
[2020-11-07 05:58] LABS: BUN/Creatinine Ratio 4 (6-26); Blood Urea Nitrogen 4 mg/dL (6-20); Calcium 8.9 mg/dL (8.6-10.3); Carbon Dioxide 27 mEq/L (23-29); Chloride 108 mEq/L (98-107); Glucose 97 mg/dL (70-105); Osmolality,Calculated 291 (280-300); Potassium 3.5 mEq/L (3.5-5.1); Sodium 142 mEq/L (136-145); eGFR For African Americans > 60 (> 60); eGFR For Non-African Americans 52 (> 60)
[2020-11-07] MEDS: Sucralfate 1 GM TABLET PO SCH ×2 (07:20→15:57)
[2020-11-07] MEDS: cefTRIAXone 1,000 MG in 0.9 % Sodium Chloride Mini Bag 100 ML IVPB SCH (15:57)
[2020-11-07] MEDS: Mirtazapine 15 MG TABLET PO SCH (20:31)
[2020-11-08] MEDS: *HR* Heparin 5,000 UNIT/ML VIAL SQ SCH ×3 (04:49→17:18)
[2020-11-08] MEDS: Sucralfate 1 GM TABLET PO SCH ×2 (07:47→17:17)
[2020-11-08] MEDS: *HR* HYDROmorphone (PF) 1 MG/ML SYRINGE IVP PRN ×2 (07:58→18:01)
[2020-11-08] MEDS: Ondansetron 4 MG/2 ML VIAL IVP PRN (07:58)
[2020-11-08] MEDS: cefTRIAXone 1,000 MG in 0.9 % Sodium Chloride Mini Bag 100 ML IVPB SCH (17:20)
[2020-11-08 18:41] VITALS: BP 132/80; PULSE 64; TEMP 98.2; O2SAT 94
== END 2020-11-08 20:30 | disposition short-term general hospital (02) | DRG 251 ==
LOC: 3ANU 13:34 → EMEROOARM 13:34 → 3ANU 18:30 → SUATTDRO 11-04 18:23 → 3BNU 11-07 21:45
PROVIDERS: ADMIT Internal Medicine; ATTEND Internal Medicine